=== PATIENT | male | born 1990 | race Two or more races ===

== ENCOUNTER 2016-06-25 13:46 | Emergency (ER) | payer SELFPAY ==
[~2016-06-25] VITALS: Ht 180.3 cm; Wt 74.8 kg
[2016-06-25 14:02] VITALS: BP 147/100
[2016-06-25] MEDS ORDERED: HYDROcodone-ACET 10/325MG TAB PO ONE (16:15)
[2016-06-25] MEDS ORDERED: ONDANSETRON ODT 4 MG TAB PO ONE (16:15)
== END 2016-06-25 18:41 | disposition left against medical advice (07) ==
LOC: ER 13:46
DX: H57.12 Ocular pain, left eye (principal); R51 Headache; Y08.89XA Assault by other specified means, initial encounter; Y93.89 Activity, other specified; Y99.8 Other external cause status; Y92.89 Other specified places as the place of occurrence of the external cause
CPT/HCPCS: 70450; 70480; 99284; Q0162

== ENCOUNTER 2017-12-13 23:18 | Emergency (ER) | payer MEDICAID ==
[~2017-12-13] VITALS: Ht 180.3 cm; Wt 83.9 kg
[2017-12-13 23:33] VITALS: BP 159/78
== END 2017-12-14 02:50 | disposition home or self-care (01) ==
LOC: ER 23:19
DX: L03.113 Cellulitis of right upper limb (principal); F15.10 Other stimulant abuse, uncomplicated

== ENCOUNTER 2022-04-19 00:49 | Emergency (ER) | payer MEDICAID ==
[~2022-04-19] VITALS: Ht 175.3 cm; Wt 90.0 kg
[2022-04-19 00:49] VITALS: BP 117/71
[2022-04-19] MEDS ORDERED: SODIUM CHLORIDE 0.9% 1,000 ML IVB ONE (01:30)
[2022-04-19] MEDS ORDERED: ONDANSETRON HCL 4 MG/2 ML VIAL IV ONE (01:30)
[2022-04-19 01:53] LABS: Basophils # (auto) 0 10 ^3/uL (0-0.2); Basophils % (auto) 0.5 % (0.0-2.0); Eosinophils # (auto) 0.1 10 ^3/uL (0-0.8); Eosinophils % (auto) 1.5 % (0.0-7.0); Hemoglobin 12.9 g/dL (13.5-17.5); Lymphocytes # (auto) 2.2 10 ^3/uL (0.4-5.4); Lymphocytes % (auto) 27.5 % (10.0-50.0); Mean Corpuscular Hemoglobin 27.4 pg (28.0-32.0); Mean Corpuscular Hgb Conc. 32.3 g/dL (32.0-36.0); Mean Corpuscular Volume 84.8 fL (80.0-100.0); Monocytes # (auto) 0.6 10 ^3/uL (0-1.3); Monocytes % (auto) 7.7 % (0.0-12.0); Neutrophils % (auto) 62.8 % (37.0-80.0); Nucleated Red Blood Cells % 0.1 %; Red Blood Cells 4.71 10^6/uL (4.5-5.90)
[2022-04-19 02:06] LABS: Albumin 3.8 g/dL (3.4-5.0); BUN/Creatinine Ratio 19.3; Calcium 9.7 mg/dL (8.5-10.1); Potassium 3.1 mmol/L (3.5-5.1)
[2022-04-19 02:08] LABS: Bilirubin, Total 0.4 mg/dL (0.2-1.0); Total Protein 7.9 g/dL (6.4-8.2)
[2022-04-19] MEDS ORDERED: POTASSIUM EFFERVESENT TAB 25 MEQ PO ONE (02:30)
== END 2022-04-19 08:58 | disposition left against medical advice (07) ==
LOC: ER 00:49
DX: K52.9 Noninfective gastroenteritis and colitis, unspecified (principal); K80.20 Calculus of gallbladder without cholecystitis without obstruction; E87.6 Hypokalemia; F12.10 Cannabis abuse, uncomplicated; F15.10 Other stimulant abuse, uncomplicated
CPT/HCPCS: 36415; 74176; 80053; 85025

== ENCOUNTER 2023-12-19 02:47 | Emergency (ER) | payer MEDICAID ==
[~2023-12-19] VITALS: Ht 175.3 cm; Wt 83.6 kg
[~2023-12-19 02:47] MED LIST: NALO4SPR2
[2023-12-19] MEDS: ONDANSETRON HCL 4 MG/2 ML VIAL IM ONE (03:07)
[2023-12-19] MEDS: ONDANSETRON HCL 4 MG/2 ML VIAL ONE (03:07)
[2023-12-19 04:32] LABS: Basophils # (auto) 0.1 10 ^3/uL (0-0.2); Basophils % (auto) 0.6 % (0.0-2.0); Eosinophils # (auto) 0.2 10 ^3/uL (0-0.8); Eosinophils % (auto) 1.8 % (0.0-7.0); Hematocrit 39.2 % (41.0-53.0); Lymphocytes # (auto) 2.4 10 ^3/uL (0.4-5.4); Lymphocytes % (auto) 21.1 % (10.0-50.0); Mean Corpuscular Hemoglobin 28.4 pg (28.0-32.0); Mean Corpuscular Hgb Conc. 33.1 g/dL (32.0-36.0); Mean Corpuscular Volume 85.8 fL (80.0-100.0); Monocytes % (auto) 8.7 % (0.0-12.0); Neutrophils # (auto) 7.7 10 ^3/uL (1.6-8.6); Neutrophils % (auto) 67.8 % (37.0-80.0); Platelet Count (auto) 276 10^3/uL (140-450); Red Blood Cells 4.57 10^6/uL (4.5-5.90); Red Cell Distribution Width 15.4 % (11.8-14.3); White Blood Cell 11.3 10^3/uL (4.4-10.8)
[2023-12-19] MEDS: MORPHINE SULFATE 4 MG/ML SYR/VIAL IV ONE (04:39)
[2023-12-19] MEDS: SODIUM CHLORIDE 0.9% 1,000 ML IV ONE (04:40)
[2023-12-19] MEDS: FAMOTIDINE (10MG/ML) 2ML VL IV ONE (04:42)
[2023-12-19] MEDS: ONDANSETRON HCL 4 MG/2 ML VIAL IV ONE (04:42)
[2023-12-19 04:46] LABS: INR 1.01 (0.9-1.15); Partial Thromboplastin Time 26.8 SEC (24.5-34.5); Prothrombin Time 10.7 sec (9.3-11.8)
[2023-12-19 04:49] LABS: Alanine Aminotransferase 31 U/L (7-40); Albumin 4.8 g/dL (3.2-4.8); Alkaline Phosphatase 85 U/L (46-116); Anion Gap 11 (5-15); Aspartate Aminotransferase 20 U/L (13-40); BUN/Creatinine Ratio 14.9 (10.0-20.0); Bilirubin, Total 0.3 mg/dL (0.2-1.0); Blood Alcohol < 3.0 mg/dL (<10); Blood Urea Nitrogen 14 mg/dL (9-23); Calcium 10.1 mg/dL (8.7-10.4); Carbon Dioxide 27 mmol/L (20-30); Chloride 106 mmol/L (98-107); Glucose 111 mg/dL (74-106); Sodium 144 mmol/L (136-145); Total Protein 7.7 g/dL (5.7-8.2)
[2023-12-19 05:00] LABS: Lipase 29 U/L (12-53)
[2023-12-19] MEDS ORDERED: IBUP1TAB5 PO (05:22)
[2023-12-19] MEDS ORDERED: ZOFR4T PO (05:22)
[2023-12-19 05:40] VITALS: BP 129/85; PULSE 79; RESP 19; TEMP 97.8; O2SAT 99
== END 2023-12-19 05:41 | disposition home or self-care (01) ==
LOC: ER 02:47
DX: R60.0 Localized edema (principal); R51.9 Headache, unspecified; R11.2 Nausea with vomiting, unspecified; R42 Dizziness and giddiness; F17.210 Nicotine dependence, cigarettes, uncomplicated
CPT/HCPCS: 36415; 80053; 80320; 83605; 83690; 83880; 85025; 85379; 85610; 85730; 96361; 96372; 96374; 96375; 99284; J2405; J3490; J7030

== ENCOUNTER 2024-04-30 22:54 | Emergency (ER) | payer MEDICAID, OTHER ==
[~2024-04-30] VITALS: Ht 175.3 cm; Wt 84.9 kg
[~2024-04-30 22:54] MED LIST changes: +IBUP1TAB5 PO; +ZOFR4T PO
--- NOTE | 2024-04-30 23:14 | ED.PDOC ---
History of Present Illness HPI Comments 33 y/o M presents with c/o laceration to right index finger with associated pain and mild bleeding s/p injury, today. Patient endorses on cutting his aforementioned finger, while using a pocket knife, earlier, this evening. Patient comments on not recalling his last tetanus shot and denies having any additional injuries, lightheadedness, weakness, numbness, tingling, or other associated symptoms or modifiers at this time. Time Seen by MD: 23:00 Reviewed Notes: Nurses Notes, Medications, Allergies Allergies: Coded Allergies: NO KNOWN ALLERGIES (Unverified , 10/04/15) Home Meds Active Scripts Ibuprofen Micronized (Ibuprofen) 600 Mg Tab, 600 MG PO Q6HP PRN, #30 TAB prn pain Prov:SARAI BIANCHI MD 12/19/23 Ondansetron Odt 4MG Tab (ZOFRAN PO) 4 Mg Tb, 4 MG PO TID PRN, #20 TAB prn nausea/vomiting ODT TAB-DISSOLVE IN MOUTH, THEN SWALLOW Prov:SARAI BIANCHI MD 12/19/23 Naloxone HCl (Narcan) 4 Mg/0.1 Ml Spr, 4 MG NA PRN for 365 Days, #1 SPRAY 1 Refill Prov:SHILPA DURAN MD 08/19/22 Information Source: Patient Mode of Arrival: Ambulatory Severity: Moderate Timing: Hours Duration: Since onset Prehospital treatment: None Past Medical History PAST MEDICAL HISTORY: Denies Surgical History: Denies all surgeries Family History Family History: Reviewed,noncontributory to illness, Unknown Social History Smoker: Cigarettes, Less Than 1 Pack/Day Alcohol: Denies ETOH Use Drugs: Denies Drug Use Lives In: Home Integumetry: reports: laceration (right index finger ) All Other Systems: Reviewed and Negative (negative unless otherwise stated a caity or in HPI) Physical Exam General Appearance: No Apparent Distress, Normal HEENT: Normal ENT Inspection, Pharynx Normal, TMs Normal Neck: Full Range of Motion, Non-Tender, Normal, Normal Inspection Respiratory: Chest Non-Tender, Lungs Clear, No Accessory Muscle Use, No Respiratory Distress, Normal Breath Sounds Cardiovascular: No Edema, No JVD, No Murmur, No Gallop, Normal Peripheral Pulses, Regular Rate/Rhythm Breast Exam: Deferred Gastrointestinal: No Organomegaly, Non Tender, No Pulsatile Mass, Normal Bowel Sounds, Soft Genitalia: Deferred Pelvic: Deferred Rectal: Deferred Extremities: No calf tenderness, Normal capillary refill, Normal inspection, Normal range of motion, Non-tender, No pedal edema Musculoskeletal : Apperance: Normal Neurologic: Alert, joint yarner II-XII nml as Tested, No Motor Deficits, Normal Affect, Normal Mood, No Sensory Deficits Cerebellar Function: Normal Reflexes: Normal Skin: Dry, Lacerations (proximal phalanx of right 2nd digit), Normal Color, Warm Lymphatic: No Adenopathy Was a procedure done? Was a procedure done?: Yes Sedation Sedation?: No Informed consent obtained: Yes Laceration Repair : Location right index finger (2ng digit) at proximal phalanx side Length 2cm Anesthetic: Lidocaine, Without epi Laceration Repair Prep: Saline, Betadine, by Irrigation, Manual Scrub Laceration Repair Wound Comple: epidermis/dermis repair Laceration Repair: Dermabond Informed consent obtained: Yes Risks, benefits, and alternati: Yes Differential Dx Considerations may include: laceration, tendon injury, neurovascular injury X-Ray, Labs, Meds, VS Vital Signs Date Time Temp Pulse Resp B/P (MAP) Pulse Ox O2 Delivery O2 Flow Rate FiO2 04/30/24 23:27 99.2 105 18 134/98 (110) 96 Time of 1ST Reevaluation: 23:30 Reevaluation 1ST: Unchanged Time of 2ND Reevaluation: 00:07 Reevaluation 2ND: Improved Patient Education/Counseling: Diagnosis, Treatment, Prognosis, Need For Follow Up Family Education/Counseling: No Family Present Additional Information i had prepped and cleaned the wound, explored it. pt has intact motor and sensory functions. i was able to digitally block the finger with lidocaine 2% without epi, however, at the last minute, pt declined to be sutured, and requested dermabond Departure 1 Departure Time of Disposition: 00:09 Impression: Primary Impression: Finger laceration Qualified Codes: S61.210A - Laceration without foreign body of right index finger without damage to nail, initial encounter Disposition: HOME / SELF CARE / HOMELESS Condition: Good Discharged With: Self Critical Care Note Critical Care Time?: No Stability Stability form required: No Heart Score Heart Score: Heart Score Response (Comments) Value History N/A 0 EKG N/A 0 Age N/A 0 Risk Factors N/A 0 Troponin N/A 0 Total 0 I personally scribed for RAYNA GOLDSTEIN MD ([facility]) on 04/30/24 at 23:14. Electronically submitted by Silvino Giron ([email or web address]). I personally scribed for RAYNA GOLDSTEIN MD ([facility]) on 04/30/24 at 23:23. Electronically submitted by Silvino Giron ([email or web address]). I personally scribed for RAYNA GOLDSTEIN MD ([facility]) on 04/30/24 at 23:45. Electronically submitted by Silvino Giron ([email or web address]). RAYNA GOLDSTEIN MD Apr 30, 2024 23:14
[2024-04-30] MEDS: LIDOCAINE HCL 2 % INJ 2ML MPF NEB ONE (23:15)
[2024-04-30] MEDS: TETANUS-DIPTH-ACEL PERTUSSIS 0.5ML SYR Tdap IM ONE (23:15)
[2024-05-01 00:17] VITALS: BP 134/88; PULSE 99; RESP 18; TEMP 98.9; O2SAT 96
== END 2024-05-01 00:19 | disposition home or self-care (01) ==
LOC: ER 22:54
DX: S61.210A Laceration without foreign body of right index finger without damage to nail, initial encounter (principal); F17.210 Nicotine dependence, cigarettes, uncomplicated; W26.0XXA Contact with knife, initial encounter; Y93.89 Activity, other specified; Y92.89 Other specified places as the place of occurrence of the external cause; Y99.8 Other external cause status
CPT/HCPCS: 12001; 90715